=== PATIENT | male | born 1965 | race Caucasian/White ===

== ENCOUNTER → 2016-06-30 | Outpatient (CLI) | payer BC ==
[~2016-06-30] MED LIST: ASPI325T45 PO; BND25 PO; IBUP-1050 PO; RIVA1.5T PO; RIVA1TAB4 PO; XRL10 PO
--- NOTE | 2016-06-30 22:20 | DIAGNOSTIC IMAGING REPORT ---
BILATERAL LOWER EXTREMITY VENOUS DOPPLER HISTORY: Pain. Edema. BILATERAL LEG PAIN COMPARISON STUDY: None. FINDINGS: There is normal compressibility, flow, and augmentation within the bilateral lower extremity deep venous systems. IMPRESSION: No DVT within the right or left lower extremity. Electronically signed by: Eric Plasencia M.D. 06/30/2016 10:19 PM Dictated Date/Time: 06/30/2016 10:18 PM
== END | disposition home or self-care (01) ==
LOC: C.ULTR 21:21
PROVIDERS: ATTEND Family Medicine
DX: M79.605 Pain in left leg (principal); M79.604 Pain in right leg

== ENCOUNTER 2016-07-06 18:58 | Inpatient (IN) | payer BC ==
[~2016-07-06] VITALS: Ht 185.4 cm; Wt 105.6 kg
[2016-07-06] MEDS ORDERED: SODIUM CHLORIDE 0.9% 1000ML 1,000 ML IV STA (19:12)
[2016-07-06] MEDS ORDERED: ASPIRIN 81 MG CHEW PO STA (19:12)
[2016-07-06] MEDS ORDERED: NITROGLYCERIN 0.4 MG SL PER TAB CHARGE SL PRN (19:15)
[2016-07-06 19:25] LABS: BASO % 0.3 %; BASO ABS # 0.02 K/uL (0-0.2); COMPLETE YES; EOS % 2.8 %; HEMATOCRIT 40.8 % (42-52); IG% 0.1 %; LYMPH % 29.5 %; LYMPH ABS # 2.01 K/uL (1.2-3.4); MEAN CELL VOLUME 89.1 fL (80-100); MEAN CORPUSCULAR HEMOGLOBIN 31.2 pg (25-34); NEUT % 60.3 %; PLATELET COUNT 186 K/uL (130-400); RED BLOOD COUNT 4.58 M/uL (4.7-6.1); WHITE BLOOD COUNT 6.82 K/uL (4.8-10.8)
--- NOTE | 2016-07-06 19:28 | DIAGNOSTIC IMAGING REPORT ---
CHEST ONE VIEW PORTABLE CLINICAL HISTORY: Atypical chest pain COMPARISON STUDY: No previous studies for comparison. FINDINGS: The cardiac and mediastinal contours are normal. There is no evidence of focal pulmonary consolidation. There is no evidence of failure. No pleural effusions are visualized.[There is a vague 12 mm opacity within the right mid to upper lung zone. While nonspecific, I would favor a summation. A follow-up PA and lateral study might be considered. IMPRESSION: 1. AP portable study 2. Vague 12 mm right mid upper lung zone opacity, possibly representing a summation. 3. No evidence of failure. No evidence of focal pulmonary consolidation Electronically signed by: Francesco Adrian M.D. 07/06/2016 7:27 PM Dictated Date/Time: 07/06/2016 7:25 PM
[2016-07-06 19:42] LABS: BUN/CREATININE RATIO 15.2 (10-20); CALCIUM 8.4 mg/dl (8.5-10.1); POTASSIUM 3.8 mmol/L (3.5-5.1)
[2016-07-06] MEDS ORDERED: IBUP-1050 PO (19:51)
[2016-07-06] MEDS ORDERED: DIPH25CA5 PO (19:51)
--- NOTE | 2016-07-06 21:14 | DIAGNOSTIC IMAGING REPORT ---
CT ANGIOGRAM OF THE CHEST CLINICAL HISTORY: Atypical chest pain. COMPARISON STUDY: No previous studies for comparison. TECHNIQUE: Following the IV administration of 116 mL of Optiray-320, CT angiogram of the thorax was performed from the thoracic inlet to the lung bases utilizing the pulmonary embolus protocol. Images are reviewed in the axial, sagittal, and coronal planes. IV contrast was administered without complication. MIP imaging was performed. CT DOSE: FINDINGS: No pathologically enlarged axillary mediastinal or hilar lymph nodes were visualized. There was no evidence of thoracic aortic dilatation. There are small pulmonary artery filling defects involving both upper lobes the left lower lobe of the right middle lobe. There are moderate pulmonary artery filling defects within the right lower lobe. The findings are indicative of acute bilateral pulmonary embolism. No pleural effusions are visualized. There are mild dependent atelectatic changes. There is no lobar consolidation. There are clustered right apical nodules, some which are calcified. A postinflammatory etiology is favored. There are no nodules to correspond to the equivocal 12 mm right lung nodule described in the recent chest x-ray. This likely represented a summation. IMPRESSION: Acute bilateral pulmonary embolism. Electronically signed by: Francesco Adrian M.D. 07/06/2016 9:13 PM Dictated Date/Time: 07/06/2016 9:10 PM
[2016-07-06] MEDS ORDERED: OPTIRAY 320 IV PRN (21:15)
--- NOTE | 2016-07-06 21:23 | DIAGNOSTIC IMAGING REPORT ---
CT ANGIO PELVIS WITH CONTRAST CT DOSE: 1119.17 mGy.cm CLINICAL HISTORY: Chest and pelvic pain. Leg swelling. TECHNIQUE: CT angiography of the abdomen was performed in a dynamic helical fashion during intravenous administration of 116 cc of Optiray 320. COMPARISON STUDY: None. FINDINGS: There is no evidence of abdominal aortic aneurysm. There is no evidence of aortic or iliac stenosis. There is no pathologic adenopathy. There is a left common iliac lymph node the upper limits of normal in size measuring 9 mm in short axis. There are no abnormal pelvic masses. There is no pathologic bowel dilatation. Pelvic veins are not optimally evaluated on this arterial phase study. The technologist performing the study, assumed this was an arteriographic examination. The patient was not called back for additional imaging, as the chest portion of the examination revealed bilateral pulmonary embolism. IMPRESSION: 1. No evidence of aortic or iliac aneurysm, dissection, or stenosis. 2. No abnormal pelvic masses. No evidence of pathologic adenopathy by size criteria. Electronically signed by: Francesco Adrian M.D. 07/06/2016 9:22 PM Dictated Date/Time: 07/06/2016 9:09 PM
[2016-07-06] MEDS ORDERED: HEPARIN SOD (PORCINE) 1000 UNIT/ML 10 ML VIAL IV STA (21:34)
[2016-07-06] MEDS ORDERED: HEPARIN SQ 5000 UNIT HEART ALERT CARP ONE (21:40)
[2016-07-06] MEDS ORDERED: HEPARIN 25000 UNIT/500 ML D5W ONE (21:40)
[2016-07-06] MEDS ORDERED: HEPARIN SOD (PORCINE) 1000 UNIT/ML 10 ML VIAL ONE (21:42)
[2016-07-06] MEDS ORDERED: HEPARIN 25,000 UNIT/500ML D5W 500 ML IV PRN (21:45)
[2016-07-06 21:55] LABS: INR 0.9 (0.9-1.1); PARTIAL THROMBOPLASTIN RATIO 1.1
[2016-07-06] MEDS ORDERED: IBUPROFEN 200 MG TAB PO PRN (22:30)
[2016-07-06] MEDS ORDERED: ALUMINUM/MAGNESIUM/SIMETH (MAALOX MAX) 30 ML UDC PO PRN (22:30)
[2016-07-06] MEDS ORDERED: MAGNESIUM HYDROXIDE SUSP 30 ML UDC PO PRN (22:30)
[2016-07-06] MEDS ORDERED: POLYETHYLENE (MIRALAX) 17 GM PACK PO PRN (22:30)
[2016-07-06] MEDS ORDERED: ONDANSETRON INJ 2 MG/ML 2 ML VIAL IV PRN (22:30)
--- NOTE | 2016-07-06 22:37 | History and Physical ---
History & Physical Date & Time of Service: Jul 06, 2016 at 22:36 Chief Complaint: Chest Pain, Arm Pain, Down Through The Arm Primary Care Physician: Dori Talavera MD History of Present Illness Source: patient This is a 50 y/o M with a h/o of JRA who presents with left sided chest pain. He reports that last week, he had some bilateral calf pain which he attributed to cramps and didn't think much of it. However the pain persisted, so he went to [facility] and there was concern for DVT, so an USG was done. This was reportedly negative. He also did have some blood work that has not been reported yet. Today at dinner, he started have low grade left sided chest pain that started as a dull soreness and progressed to worsening pain. The pain was about 5/10. He asked his to bring him to the ER. Currently he does have chest pain that is worse with inspiration and somewhat improved with sitting forward. He does report travelling to [facility] about 2-3 weeks ago for his daughters wedding. This was a 9+ hour flight. He's not really sure if he had developed any calf tenderness then. He denies a personal and / or family history of blood clots/ clotting disorder, though there were grand parents who young from unknown causes. Denies shortness of breath, melena, hematochezia, abdominal pain, nausea/ vomiting, diaphoresis, numbness/tingling Denies smoking Past Medical/Surgical History Medical Problems: (1) High triglycerides Status: Chronic (2) Hypercholesteremia Status: Chronic Family History FH: cancer FH: diabetes mellitus FH: heart disease FH: hypertension FH: seizures Kidney stone Social History Smoking Status: Never Smoker Alcohol Use: occasionally Drug Use: none Marital Status: Housing status: lives with family Occupational Status: employed Multi-Drug Resistant Organisms History of MDRO: No Allergies Coded Allergies: No Known Allergies (Unverified , 07/06/16) Home Medications Scheduled Diphenhydramine Hcl (Benadryl), 50 MG PO HS Rivaroxaban (Xarelto), 20 MG PO DAILY Rivaroxaban (Xarelto), 15 MG PO BID Review of Systems Constitutional: No chills, No fever Eyes: No worsening of vision ENT: No hearing loss Respiratory: No cough, No dyspnea at rest, No dyspnea on exertion, No shortness of breath, No sputum, No wheezing Cardiovascular: + chest pain Abdomen: No diarrhea, No nausea, No pain, No vomiting Musculoskeletal: + calf pain, + joint pain, + muscle pain, + swelling Genitourinary - Male: No dysuria, No hematuria, No urinary frequency, No urinary urgency Physical Exam Vital Signs Date Time Temp Pulse Resp B/P Pulse Ox O2 Delivery O2 Flow Rate FiO2 07/06/16 21:09 77 18 143/90 97 Room Air 07/06/16 19:17 98 Room Air 07/06/16 19:17 98 Room Air 07/06/16 19:14 72 07/06/16 19:10 98 Room Air 07/06/16 19:00 36.7 72 18 153/100 98 Room Air General Appearance: no apparent distress Eyes: PERRL, EOMI ENT: hearing grossly normal Neck: supple, no adenopathy, thyroid normal Respiratory/Chest: lungs clear, normal breath sounds, no respiratory distress, no accessory muscle use Cardiovascular: regular rate, rhythm, no edema, no murmur Abdomen/GI: normal bowel sounds, non tender, soft Back: no CVA tenderness, no muscle spasm Extremities/Musculoskelatal: + calf tenderness (left proximal calf), + swelling (left calf > right) Neurologic/Psych: no motor/sensory deficits, alert, normal mood/affect, oriented x 3 Diagnostics Laboratory Results Results Past 24 Hours Test 07/06/16 19:13 07/06/16 19:16 07/06/16 21:51 Range/Units White Blood Count 6.82 4.8-10.8 K/uL Red Blood Count 4.58 4.7-6.1 M/uL Hemoglobin 14.3 14.0-18.0 g/dL Hematocrit 40.8 42-52 % Mean Corpuscular Volume 89.1 80-100 fL Mean Corpuscular Hemoglobin 31.2 25-34 pg Mean Corpuscular Hemoglobin Concent 35.0 32-36 g/dl Platelet Count 186 130-400 K/uL Mean Platelet Volume 10.0 7.4-10.4 fL Neutrophils (%) (Auto) 60.3 % Lymphocytes (%) (Auto) 29.5 % Monocytes (%) (Auto) 7.0 % Eosinophils (%) (Auto) 2.8 % Basophils (%) (Auto) 0.3 % Neutrophils # (Auto) 4.11 1.4-6.5 K/uL Lymphocytes # (Auto) 2.01 1.2-3.4 K/uL Monocytes # (Auto) 0.48 0.11-0.59 K/uL Eosinophils # (Auto) 0.19 0-0.5 K/uL Basophils # (Auto) 0.02 0-0.2 K/uL RDW Standard Deviation 41.3 36.4-46.3 fL RDW Coefficient of Variation 12.8 11.5-14.5 % Immature Granulocyte % (Auto) 0.1 % Immature Granulocyte # (Auto) 0.01 0.00-0.02 K/uL Prothrombin Time 10.0 9.0-12.0 SECONDS Prothromb Time International Ratio 0.9 0.9-1.1 Activated Partial Thromboplast Time 27.3 21.0-31.0 SECONDS Partial Thromboplastin Ratio 1.1 Sodium Level 141 136-145 mmol/L Potassium Level 3.8 3.5-5.1 mmol/L Chloride Level 106 98-107 mmol/L Carbon Dioxide Level 27 21-32 mmol/L Anion Gap 8.0 3-11 mmol/L Blood Urea Nitrogen 15 7-18 mg/dl Creatinine 1.00 0.60-1.40 mg/dl Est Creatinine Clear Calc Drug Dose 111.5 ml/min Estimated GFR () 99.8 Estimated GFR (Non- 86.2 BUN/Creatinine Ratio 15.2 10-20 Random Glucose 117 70-99 mg/dl Calcium Level 8.4 8.5-10.1 mg/dl Total Bilirubin 0.4 0.2-1 mg/dl Direct Bilirubin 0.1 0-0.2 mg/dl Aspartate Amino Transf (AST/SGOT) 29 15-37 U/L Alanine Aminotransferase (ALT/SGPT) 53 12-78 U/L Alkaline Phosphatase 91 45-117 U/L Total Protein 7.9 6.4-8.2 gm/dl Albumin 3.9 3.4-5.0 gm/dl Lipase 289 73-393 U/L Bedside D-Dimer > 450 0-450 ng/mlFEU Bedside Troponin I 0.010 0-0.045 ng/ml Folate > 24.00 >5.38 ng/mL Impression Assessment and Plan This is a 50 y/o M, history of JRA, otherwise healthy who presents with progressively worsening chest pain 2/2 to Bilateral pulmonary emboli. History would suggest that this may have been provoked with his recent trip to [facility] , however, time elapsed till presentation of symptoms is somewhat greater than what one would expect, unless he had developed a small clot that progressed and propagated. Bilateral pulmonary Emboli: CT chest with evidence of such LE dopplers done to evaluate for illiac involvement- none seen CTA with no evidence of dissection. Patient started on Lovenox BID Tomorrow, Case management and team can decide on oral anticoagulation based on patient's insurance Ideally patient could go home tomorrow if remains hemodynamically stable Hypercoagulable work-up pending If truly unprovoked, I also wonder about his autoimmune condition, RA, that may raise his risk for PE vs. other concomitant AI conditions (could consider if hypercoagulable workup is negative.) Rheumatoid Arthritis: Patient takes Ibuprofen Concern for GI bleed with Anticoagulation and consistent use of ibuprofen Could try tramadol as an alternative for the interim Need to discuss options as patient is somewhat reliant on ibuprofen for pain control. DVT proph Lovenox for now VTE Prophylaxis VTE Risk Assessment Done? Y/N: Yes Risk Level: High Assessment and Plan Attending Addendum: I have physically seen and examined this patient, have directed their medical care, have supervised the medical residents activities, and agree with the H&P as noted above, with the following changes: The patient is awake, well-developed and adequately nourished, alert and oriented 3, normocephalic and atraumatic, lying in bed and in no acute distress. HEENT--PERRL, EOMI, mucous membranes and oropharynx dry. Neck--supple, no JVD or bruits, thyroid normal, trachea midline, no adenopathy. Heart--normal S1 and S2, no extra beats, no murmurs, rubs or gallops. Lungs--clear bilaterally with good air movement, no respiratory distress, no accessory muscle use. Abdomen--normal bowel sounds and soft, nontender and nondistended, no hernias or masses, no organomegaly. Extremities--right lower extremity/no cyanosis, clubbing or edema. There are good distal pulses b/l. Left lower extremity calf has increased in size and tender. Dermatologic--normal skin turgor, normal color, warm and dry, no abnormal lymph nodes, no rash. Neurologic--cranial nerves II through XII grossly intact, motor and sensory examination normal. Rheumatologic--normal range of motion, nontender, muscles and joints. Psychiatric--normal affect. Assessment and plan: Bilateral pulmonary emboli/left lower extremity superficial veins with occlusive thrombus in the popliteal fossa--the patient will be admitted to hospital on Lovenox 1 mg/kg subcutaneous twice a day, that should be able to be changed over to Xarelto, pradoxa or Eliquis in the a.m., Depending on insurance coverage. Hypercoagulable workup has been ordered and is pending at this point. Rheumatoid arthritis patient has been using ibuprofen on a regular basis. He is advised to avoid all NSAIDs on a routine basis until he is off for anticoagulation. Tramadol with or without Tylenol can be an option for now, he could also use topical Voltaren gel.
[2016-07-06] MEDS ORDERED: ACETAMINOPHEN 325 MG TAB ONE (23:29)
[2016-07-07 00:17] VITALS: BP 157/112; PULSE 72; TEMP 36.4; O2SAT 97; Ht 185.4 cm; Wt 105.6 kg
[2016-07-07] MEDS ORDERED: NURSING VERBAL MED ORDER ONE (00:45)
--- NOTE | 2016-07-07 01:14 | EMERGENCY ROOM VISIT NOTE ---
History Report prepared by Angel: Sony Estrada Under the Supervision of: Dr. Alan Miranda M.D. First contact with patient: 19:06 Chief Complaint: CHEST PAIN Stated Complaint: CHEST PAIN, ARM PAIN, DOWN THROUGH THE ARM History of Present Illness The patient is a 50 year old male who presents to the Emergency Room with complaints of persistent chest pain that started 40 minutes ago. The patient notes that the discomfort was mainly in his left chest and radiated down his left arm. The discomfort came on suddenly while he was eating dinner tonight. When the discomfort started, he rated his discomfort as a 4.5 out of 10 in severity. Upon arrival at the ED, the patient rates his discomfort as a 3 out of 10 in severity and describes it as feeling like a pressure in his chest. He also complains of a headache. A few days ago, the patient had significant discomfort in his left calf. He presented to his doctor who did an ultrasound which showed no blood clot or thrombosis and blood work which he gets the results for tomorrow. He still complains of left leg calf tenderness today. The patient notes that he had a relaxing day today and did not exert himself more than usual. He recently travelled to [facility] and back. Pt denies LOC, fevers, chills, diaphoresis, visual changes, neck pain, tearing pain radiating to the back, personal history or family history of aneurysm or pulmonary embolism, uncontrolled hypertension, breathing difficulties, coagulation abnormalities, recent surgery or immobilization, nausea, vomiting, abdominal pain, melena, hematochezia, urinary symptoms, numbness, weakness, lymphadenopathy, rash, or other complaints. Source of History: patient Onset: 40 minutes ago Position: chest (left) Symptom Intensity: was a 4.5/10 in severity, now is 3/10 Quality: pressure Timing: other (persistent) Associated Symptoms: + headache Note: Other associated symptoms: radiation to left arm, discomfort in left calf Review of Systems See HPI for pertinent positives and negatives. A total of ten systems were reviewed and were otherwise negative. Past Medical & Surgical Medical Problems: (1) Bilateral pulmonary embolism (2) High triglycerides (3) Hypercholesteremia Family History FH: cancer FH: diabetes mellitus FH: heart disease FH: hypertension FH: seizures Kidney stone Social History Smoking Status: Never Smoker Marital Status: Housing Status: lives with significant other Occupation Status: employed Current/Historical Medications Scheduled Diphenhydramine Hcl (Benadryl), 50 MG PO HS Scheduled PRN Ibuprofen (Advil), 200-400 MG PO TID PRN for Pain Allergies Coded Allergies: No Known Allergies (Unverified , 07/06/16) Physical Exam Vital Signs Date Time Temp Pulse Resp B/P Pulse Ox O2 Delivery O2 Flow Rate FiO2 07/06/16 21:09 77 18 143/90 97 Room Air 07/06/16 19:17 98 Room Air 07/06/16 19:17 98 Room Air 07/06/16 19:14 72 07/06/16 19:10 98 Room Air 07/06/16 19:00 36.7 72 18 153/100 98 Room Air Physical Exam GENERAL: Awake, alert, well-appearing, in no distress HENT: Normocephalic, atraumatic. Oropharynx unremarkable. EYES: Normal conjunctiva. Sclera non-icteric. NECK: Supple. No nuchal rigidity. FROM. No JVD. RESPIRATORY: Clear to auscultation. CARDIAC: Regular rate, normal rhythm. Extremities warm and well perfused. Pulses equal. ABDOMEN: Soft, non-distended. No tenderness to palpation. No rebound or guarding. No masses. RECTAL: Deferred. MUSCULOSKELETAL: Chest examination reveals no tenderness. The back is symmetrical on inspection without obvious abnormality. There is no CVA tenderness to palpation. No joint edema. Left calf tenderness, left Lety's sign. LOWER EXTREMITIES: Calves are equal size bilaterally and non-tender. No edema. No discoloration. NEURO: Normal sensorium. No sensory or motor deficits noted. SKIN: No rash or jaundice noted. Medical Decision & Procedures ER Provider Diagnostic Interpretation: X-ray: Per my interpretation, radiologist review. CHEST ONE VIEW PORTABLE CLINICAL HISTORY: Atypical chest pain COMPARISON STUDY: No previous studies for comparison. FINDINGS: The cardiac and mediastinal contours are normal. There is no evidence of focal pulmonary consolidation. There is no evidence of failure. No pleural effusions are visualized.[There is a vague 12 mm opacity within the right mid to upper lung zone. While nonspecific, I would favor a summation. A follow-up PA and lateral study might be considered. IMPRESSION: 1. AP portable study 2. Vague 12 mm right mid upper lung zone opacity, possibly representing a summation. 3. No evidence of failure. No evidence of focal pulmonary consolidation Electronically signed by: Francesco Adrian M.D. 07/06/2016 7:27 PM Dictated Date/Time: 07/06/2016 7:[address] ANGIOGRAM OF THE CHEST CLINICAL HISTORY: Atypical chest pain. COMPARISON STUDY: No previous studies for comparison. TECHNIQUE: Following the IV administration of 116 mL of Optiray-320, CT angiogram of the thorax was performed from the thoracic inlet to the lung bases utilizing the pulmonary embolus protocol. Images are reviewed in the axial, sagittal, and coronal planes. IV contrast was administered without complication. MIP imaging was performed. CT DOSE: FINDINGS: No pathologically enlarged axillary mediastinal or hilar lymph nodes were visualized. There was no evidence of thoracic aortic dilatation. There are small pulmonary artery filling defects involving both upper lobes the left lower lobe of the right middle lobe. There are moderate pulmonary artery filling defects within the right lower lobe. The findings are indicative of acute bilateral pulmonary embolism. No pleural effusions are visualized. There are mild dependent atelectatic changes. There is no lobar consolidation. There are clustered right apical nodules, some which are calcified. A postinflammatory etiology is favored. There are no nodules to correspond to the equivocal 12 mm right lung nodule described in the recent chest x-ray. This likely represented a summation. IMPRESSION: Acute bilateral pulmonary embolism. Electronically signed by: Francesco Adrian M.D. 07/06/2016 9:13 PM Dictated Date/Time: 07/06/2016 9:[address] ANGIO PELVIS WITH CONTRAST CT DOSE: 1119.17 mGy.cm CLINICAL HISTORY: Chest and pelvic pain. Leg swelling. TECHNIQUE: CT angiography of the abdomen was performed in a dynamic helical fashion during intravenous administration of 116 cc of Optiray 320. COMPARISON STUDY: None. FINDINGS: There is no evidence of abdominal aortic aneurysm. There is no evidence of aortic or iliac stenosis. There is no pathologic adenopathy. There is a left common iliac lymph node the upper limits of normal in size measuring 9 mm in short axis. There are no abnormal pelvic masses. There is no pathologic bowel dilatation. Pelvic veins are not optimally evaluated on this arterial phase study. The technologist performing the study, assumed this was an arteriographic examination. The patient was not called back for additional imaging, as the chest portion of the examination revealed bilateral pulmonary embolism. IMPRESSION: 1. No evidence of aortic or iliac aneurysm, dissection, or stenosis. 2. No abnormal pelvic masses. No evidence of pathologic adenopathy by size criteria. Electronically signed by: Francesco Adrian M.D. 07/06/2016 9:22 PM Dictated Date/Time: 07/06/2016 9:09 PM Laboratory Results 07/06/16 19:13 Red Blood Count 4.58, Mean Corpuscular Volume 89.1, Mean Corpuscular Hemoglobin 31.2, Mean Corpuscular Hemoglobin Concent 35.0, Mean Platelet Volume 10.0, Neutrophils (%) (Auto) 60.3, Lymphocytes (%) (Auto) 29.5, Monocytes (%) (Auto) 7.0, Eosinophils (%) (Auto) 2.8, Basophils (%) (Auto) 0.3, Neutrophils # (Auto) 4.11, Lymphocytes # (Auto) 2.01, Monocytes # (Auto) 0.48, Eosinophils # (Auto) 0.19, Basophils # (Auto) 0.02 07/06/16 19:13 Test 07/06/16 19:13 07/06/16 19:16 07/06/16 21:51 White Blood Count 6.82 K/uL (4.8-10.8) Red Blood Count 4.58 M/uL (4.7-6.1) Hemoglobin 14.3 g/dL (14.0-18.0) Hematocrit 40.8 % (42-52) Mean Corpuscular Volume 89.1 fL (80-100) Mean Corpuscular Hemoglobin 31.2 pg (25-34) Mean Corpuscular Hemoglobin Concent 35.0 g/dl (32-36) Platelet Count 186 K/uL (130-400) Mean Platelet Volume 10.0 fL (7.4-10.4) Neutrophils (%) (Auto) 60.3 % Lymphocytes (%) (Auto) 29.5 % Monocytes (%) (Auto) 7.0 % Eosinophils (%) (Auto) 2.8 % Basophils (%) (Auto) 0.3 % Neutrophils # (Auto) 4.11 K/uL (1.4-6.5) Lymphocytes # (Auto) 2.01 K/uL (1.2-3.4) Monocytes # (Auto) 0.48 K/uL (0.11-0.59) Eosinophils # (Auto) 0.19 K/uL (0-0.5) Basophils # (Auto) 0.02 K/uL (0-0.2) RDW Standard Deviation 41.3 fL (36.4-46.3) RDW Coefficient of Variation 12.8 % (11.5-14.5) Immature Granulocyte % (Auto) 0.1 % Immature Granulocyte # (Auto) 0.01 K/uL (0.00-0.02) Prothrombin Time 10.0 SECONDS (9.0-12.0) Prothromb Time International Ratio 0.9 (0.9-1.1) Activated Partial Thromboplast Time 27.3 SECONDS (21.0-31.0) Partial Thromboplastin Ratio 1.1 Anion Gap 8.0 mmol/L (3-11) Est Creatinine Clear Calc Drug Dose 111.5 ml/min Estimated GFR () 99.8 Estimated GFR (Non- 86.2 BUN/Creatinine Ratio 15.2 (10-20) Calcium Level 8.4 mg/dl (8.5-10.1) Total Bilirubin 0.4 mg/dl (0.2-1) Direct Bilirubin 0.1 mg/dl (0-0.2) Aspartate Amino Transf (AST/SGOT) 29 U/L (15-37) Alanine Aminotransferase (ALT/SGPT) 53 U/L (12-78) Alkaline Phosphatase 91 U/L (45-117) Total Protein 7.9 gm/dl (6.4-8.2) Albumin 3.9 gm/dl (3.4-5.0) Lipase 289 U/L (73-393) Bedside D-Dimer > 450 ng/mlFEU (0-450) Bedside Troponin I 0.010 ng/ml (0-0.045) Folate > 24.00 ng/mL (>5.38) Laboratory results reviewed by me Medications Administered Medications (Trade) Dose Ordered Sig/Quoc Route Start Time Stop Time Status Last Admin Dose Admin Aspirin (Aspirin Chew) 324 mg NOW STAT PO 07/06/16 19:12 07/06/16 19:13 DC 07/06/16 19:27 324 MG Nitroglycerin 0.4 mg 0.4 mg Q5M PRN SL 07/06/16 19:15 07/07/16 00:31 DC 07/06/16 19:27 0.4 MG Sodium Chloride (Nss 1000ml) 1,000 ml @ 125 mls/hr Q8H STAT IV 07/06/16 19:12 07/07/16 00:31 DC 07/06/16 19:28 125 MLS/HR ECG Indication: chest pain Rate (beats per minute): 73 Rhythm: normal sinus Findings: nonspecific-ST abn, no acute ischemic change, no ectopy Comparison ECG Date: no prior available Change: Repeat EKG: Normal sinus rhythm with a rate of 76, non-specific ST abnormality no significant change when compared to the first EKG. Repeat EKG (#3): Normal sinus rhythm, rate of 70, no acute ischemia, no ectopy. ED Course 1901: The patient was evaluated in room B11. A complete history and physical exam was performed. 1911: Ordered NSS 1000 ml @ 125 mls/hr IV, Aspirin 324 mg PO. 1914: Ordered Nitroglycerin 0.4 mg SL/chest pain. 1916: At this time, I reevaluated the patient and updated him on his test results. 2131: At this time, I reevaluated the patient. He feels okay. He notes he had some discomfort that he rated 4 out of 10 in severity after he coughed. 2141: At this time, I discussed the patient's case with Dr. Urrutia - Hospitalist LAILA and he agreed to accept the patient for further evaluation. 2144: Ordered Heparin Sodium / Dextrose 500 ml @ 33 mls/hr IV. Medical Decision Triage Nursing notes reviewed. The patient's presentation and history were concerning for left sided chest pain. Etiologies such as cardiac ischemia, aortic dissection, pulmonary embolism, pneumonia, pneumothorax, musculoskeletal, infections, gastrointestinal, as well as others were entertained. The patient was evaluated. He had left-sided chest pain. He had a nonspecific ST change on his ECG. He was given aspirin and nitroglycerin. He did feel better after this. He had serial ECGs performed and there was no ST elevation or ST depression noted. The patient had an unremarkable chest x-ray. The patient had an unremarkable CBC, chemistry panel, LFTs and lipase. D-dimer was abnormal. He was sent for CT imaging. CT imaging revealed bilateral pulmonary emboli. The patient was reassessed. Hemodynamically he was stable. Hypercoagulability labs were ordered. IV heparin was ordered. Consultation was made with Dr. Julio Urrutia. He evaluated the patient in the emergency department and admitted him for further treatment. The chart was completed utilizing [employer] Speech voice recognition software. Grammatical errors, random word insertions, pronoun errors, and incomplete sentences are an occasional consequence of this system due to software limitations, ambient noise, and hardware issues. Any formal questions or concerns about the content, text, or information contained within the body of this dictation should be directly addressed to the physician for clarification. Consults Time Called: 2136 Consulting Physician: Dr. Urrutia - [place] [facility] [place] Call: 2141 At this time, I discussed the patient's case with Dr. Urrutia and he agreed to accept the patient for further evaluation. Impression Primary Impression: Bilateral pulmonary embolism Critical Care I have personally spent greater than 30 minutes of critical care time in the direct management of this patient. This includes bedside care, interpretation of diagnostic studies, and testing, discussion with consultants, patient, and family members, and other required patient management activities. This 30 minutes is in excess of all separately billable procedures. Scribe Attestation The scribe's documentation has been prepared under my direction and personally reviewed by me in its entirety. I confirm that the note above accurately reflects all work, treatment, procedures, and medical decision making performed by me. Departure Information Dispostion Being Evaluated By Hospitalist Referrals Droi Talavera MD (PCP)
[2016-07-07] MEDS: ENOXAPARIN 120 MG/0.8 ML SYR SQ SCH ×2 (01:24→12:00)
[2016-07-07] MEDS ORDERED: TRAMADOL HCL 50 MG TAB PO PRN (03:00)
[2016-07-07 04:20] VITALS: BP_SYST 128; BP_SYST 138; BP_DIAS 82; BP_DIAS 90; PULSE 69; TEMP 36.5; O2SAT 95
[2016-07-07] MEDS: ACETAMINOPHEN 325 MG TAB PO PRN ×2 (07:06→12:51)
[2016-07-07 07:33] VITALS: BP 138/86; PULSE 70; TEMP 36.4; O2SAT 95
--- NOTE | 2016-07-07 07:36 | DIAGNOSTIC IMAGING REPORT ---
BILATERAL LOWER EXTREMITY VENOUS DOPPLER HISTORY: Pulmonary emboli. Assess for DVT. COMPARISON STUDY: Venous Doppler 06/30/2016. FINDINGS: No DVT within the right lower extremity. No thrombus within the bilateral iliac veins. Acute occlusive thrombus within the superficial veins of the popliteal fossa. No DVT within the left lower extremity. IMPRESSION: 1. No DVT within the right or left lower extremity. 2. Occlusive thrombus within the superficial veins at the popliteal fossa. Electronically signed by: Jef Atkins M.D. 07/07/2016 7:52 AM Dictated Date/Time: 07/07/2016 7:31 AM
[2016-07-07 11:47] VITALS: BP 141/92; PULSE 68; TEMP 36.5; O2SAT 94
[2016-07-07] MEDS ORDERED: RIVA1.5T PO ×2 (13:23→13:30)
[2016-07-07] MEDS ORDERED: RIVA1TAB4 PO (13:23)
--- NOTE | 2016-07-07 13:27 | Discharge Instructions ---
Discharge Instructions Date of Service Jul 07, 2016. Admission Reason for Admission: Bilateral Pulmonary Embolism Discharge Discharge Diagnosis / Problem: Pulmonary embolism Discharge Goals Goal(s): Decrease discomfort, Increase independence, Improve disease control, Diagnostic testing, Therapeutic intervention Activity Recommendations Activity Limitations: resume your previous activity . Instructions / Follow-Up Instructions / Follow-Up You came in to the hospital for left sided chest and imaging showed you have pulmonary embolism. Please take Xarelto 15mg twice for 3 weeks then take 20mg daily for total of 3 months. Follow up with your primary doctor as scheduled. If symptoms doesn't resolve or have new symptoms please come back to the hospital. Current Hospital Diet Patient's current hospital diet: Regular Diet Discharge Diet Recommended Diet: Regular Diet Pending Studies Studies pending at discharge: yes List of pending studies: hypercoagulability workups Medical Emergencies . Who to Call and When: Medical Emergencies: If at any time you feel your situation is an emergency, please call 911 immediately. . Non-Emergent Contact Non-Emergency issues call your: Primary Care Provider . . "Provider Documentation" section prepared by Jacqui Varela. VTE Core Measure Inpt VTE Proph given/why not?: Enoxaparin (Lovenox)SQ
[2016-07-07 13:38] VITALS: BP 141/92; PULSE 68; TEMP 36.5; O2SAT 94
--- NOTE | 2016-07-07 21:10 | Discharge Summary ---
Discharge Summary Date of Service Jul 07, 2016. (Jacqui Varela MD) Discharge Summary Admission Date: Jul 06, 2016 at 22:35 Discharge Date: Jul 07, 2016 Discharge Disposition: Home Principal Diagnosis: bilateral pulmonary embolism Procedures: Patient Name: KELSEY CALLAHAN Unit Number: [id number] Dictated: 07/06/161924 Transcribed: 07/06/161924 ARG Printed Date/Time: [~ rep prt dt]/[~ rep prt tm] [~ rep ct labl] - [~ rep ct ivnm] [facility] [place] [address] Dictated: 07/06/161924 Transcribed: 07/06/161924 ARG Printed Date/Time: [~ rep prt dt]/[~ rep prt tm] [~ rep ct labl] - [~ rep ct ivnm] CHEST ONE VIEW PORTABLE CLINICAL HISTORY: Atypical chest pain COMPARISON STUDY: No previous studies for comparison. FINDINGS: The cardiac and mediastinal contours are normal. There is no evidence of focal pulmonary consolidation. There is no evidence of failure. No pleural effusions are visualized.[There is a vague 12 mm opacity within the right mid to upper lung zone. While nonspecific, I would favor a summation. A follow-up PA and lateral study might be considered. IMPRESSION: 1. AP portable study 2. Vague 12 mm right mid upper lung zone opacity, possibly representing a summation. 3. No evidence of failure. No evidence of focal pulmonary consolidation Electronically signed by: Francesco Adrian M.D. 07/06/2016 7:27 PM Dictated Date/Time: 07/06/2016 7:25 PM The status of this report is Signed. Draft = Not yet reviewed or approved by Radiologist. Signed = Reviewed and approved by Radiologist. <AttendingPhy></AttendingPhy> <FamilyPhy>Dori Talavera MD</FamilyPhy> < PrimaryPhy>Dori Talavera MD</PrimaryPhy> <UnitNumber>[id number]</UnitNumber > <VisitNumber>[id number]</VisitNumber> <PatientName>KELSEY CALLAHAN</ PatientName> <DateOfBirth>1965</DateOfBirth> <Location>C.EDB</Location> < ServiceDate>07/06/16</ServiceDate> <MNE>ESINDI</MNE> <OrderingPhy>Alan Miranda MD</OrderingPhy> <OrderingPhyMNE>f rep ord dr brady</OrderingPhyMNE> < DictatingPhyMNE>f rep dict dr brady</DictatingPhyMNE> <CCListMNE>f rep ct mnvanda</ CCListMNE> <AdmittingPhyMNE>f pt admit dr brady</AdmittingPhyMNE> <AttendingPhyMNE >f pt attend dr brady</AttendingPhyMNE> <ConsultingPhyMNE>f pt consult dr brady</ConsultingPhyMNE> <FamilyPhyMNE>f pt fam dr brady</FamilyPhyMNE> <OtherPhyMNE>f pt other dr brady</OtherPhyMNE> < PrimaryPhyMNE>f pt prim care dr brady</PrimaryPhyMNE> <ReferringPhyMNE>f pt referring dr brady</ReferringPhyMNE> Patient Name: KELSEY CALLAHAN Unit Number: [id number] Dictated: 07/06/162109 Transcribed: 07/06/162109 ARG Printed Date/Time: [~ rep prt dt]/[~ rep prt tm] [~ rep ct labl] - [~ rep ct ivnm] [facility] [place] [address] Dictated: 07/06/162109 Transcribed: 07/06/162109 ARG Printed Date/Time: [~ rep prt dt]/[~ rep prt tm] [~ rep ct labl] - [~ rep ct ivnm] CT ANGIOGRAM OF THE CHEST CLINICAL HISTORY: Atypical chest pain. COMPARISON STUDY: No previous studies for comparison. TECHNIQUE: Following the IV administration of 116 mL of Optiray-320, CT angiogram of the thorax was performed from the thoracic inlet to the lung bases utilizing the pulmonary embolus protocol. Images are reviewed in the axial, sagittal, and coronal planes. IV contrast was administered without complication. MIP imaging was performed. CT DOSE: FINDINGS: No pathologically enlarged axillary mediastinal or hilar lymph nodes were visualized. There was no evidence of thoracic aortic dilatation. There are small pulmonary artery filling defects involving both upper lobes the left lower lobe of the right middle lobe. There are moderate pulmonary artery filling defects within the right lower lobe. The findings are indicative of acute bilateral pulmonary embolism. No pleural effusions are visualized. There are mild dependent atelectatic changes. There is no lobar consolidation. There are clustered right apical nodules, some which are calcified. A postinflammatory etiology is favored. There are no nodules to correspond to the equivocal 12 mm right lung nodule described in the recent chest x-ray. This likely represented a summation. IMPRESSION: Acute bilateral pulmonary embolism. Electronically signed by: Francesco Adrian M.D. 07/06/2016 9:13 PM Dictated Date/Time: 07/06/2016 9:10 PM The status of this report is Signed. Draft = Not yet reviewed or approved by Radiologist. Signed = Reviewed and approved by Radiologist. <AttendingPhy></AttendingPhy> <FamilyPhy>Dori Talavera MD</FamilyPhy> < PrimaryPhy>Dori Talavera MD</PrimaryPhy> <UnitNumber>[id number]</UnitNumber > <VisitNumber>[id number]</VisitNumber> <PatientName>MOUNIKAFLAKOKELSEY</ PatientName> <DateOfBirth>1965</DateOfBirth> <Location>C.EDB</Location> < ServiceDate>07/06/16</ServiceDate> <MNE>LILA</MNE> <OrderingPhy>Alan Miranda MD</OrderingPhy> <OrderingPhyMNE>f rep ord dr brady</OrderingPhyMNE> < DictatingPhyMNE>f rep dict dr brady</DictatingPhyMNE> <CCListMNE>f rep ct caitlyn</ CCListMNE> <AdmittingPhyMNE>f pt admit dr brady</AdmittingPhyMNE> <AttendingPhyMNE >f pt attend dr brady</AttendingPhyMNE> <ConsultingPhyMNE>f pt consult dr brady</ConsultingPhyMNE> <FamilyPhyMNE>f pt fam dr brady</FamilyPhyMNE> <OtherPhyMNE>f pt other dr brady</OtherPhyMNE> < PrimaryPhyMNE>f pt prim care dr brady</PrimaryPhyMNE> <ReferringPhyMNE>f pt referring dr brady</ReferringPhyMNE> Patient Name: KELSEY CALLAHAN Unit Number: [id number] Dictated: 07/06/162108 Transcribed: 07/06/162109 ARG Printed Date/Time: [~ rep prt dt]/[~ rep prt tm] [~ rep ct labl] - [~ rep ct ivnm] [facility] [place] [address] Dictated: 07/06/162108 Transcribed: 07/06/162109 ARG Printed Date/Time: [~ rep prt dt]/[~ rep prt tm] [~ rep ct labl] - [~ rep ct ivnm] CT ANGIO PELVIS WITH CONTRAST CT DOSE: 1119.17 mGy.cm CLINICAL HISTORY: Chest and pelvic pain. Leg swelling. TECHNIQUE: CT angiography of the abdomen was performed in a dynamic helical fashion during intravenous administration of 116 cc of Optiray 320. COMPARISON STUDY: None. FINDINGS: There is no evidence of abdominal aortic aneurysm. There is no evidence of aortic or iliac stenosis. There is no pathologic adenopathy. There is a left common iliac lymph node the upper limits of normal in size measuring 9 mm in short axis. There are no abnormal pelvic masses. There is no pathologic bowel dilatation. Pelvic veins are not optimally evaluated on this arterial phase study. The technologist performing the study, assumed this was an arteriographic examination. The patient was not called back for additional imaging, as the chest portion of the examination revealed bilateral pulmonary embolism. IMPRESSION: 1. No evidence of aortic or iliac aneurysm, dissection, or stenosis. 2. No abnormal pelvic masses. No evidence of pathologic adenopathy by size criteria. Electronically signed by: Francesco Adrian M.D. 07/06/2016 9:22 PM Dictated Date/Time: 07/06/2016 9:09 PM The status of this report is Signed. Draft = Not yet reviewed or approved by Radiologist. Signed = Reviewed and approved by Radiologist. <AttendingPhy></AttendingPhy> <FamilyPhy>Dori Talavera MD</FamilyPhy> < PrimaryPhy>Dori Talavera MD</PrimaryPhy> <UnitNumber>[id number]</UnitNumber > <VisitNumber>[id number]</VisitNumber> <PatientName>KELSEY CALLAHAN</ PatientName> <DateOfBirth>1965</DateOfBirth> <Location>C.EDB</Location> < ServiceDate>07/06/16</ServiceDate> <MNE>ESINDI</MNE> <OrderingPhy>Alan Miranda MD</OrderingPhy> <OrderingPhyMNE>f rep ord dr brady</OrderingPhyMNE> < DictatingPhyMNE>f rep dict dr brady</DictatingPhyMNE> <CCListMNE>f rep ct mne</ CCListMNE> <AdmittingPhyMNE>f pt admit dr brady</AdmittingPhyMNE> <AttendingPhyMNE >f pt attend dr brady</AttendingPhyMNE> <ConsultingPhyMNE>f pt consult dr brady</ConsultingPhyMNE> <FamilyPhyMNE>f pt fam dr brady</FamilyPhyMNE> <OtherPhyMNE>f pt other dr brady</OtherPhyMNE> < PrimaryPhyMNE>f pt prim care dr brady</PrimaryPhyMNE> <ReferringPhyMNE>f pt referring dr brady</ReferringPhyMNE> Patient Name: KELSEY CALLAHAN Unit Number: [id number] Dictated: 07/07/16730 Transcribed: 07/07/16744 [facility] Printed Date/Time: [~ rep prt dt]/[~ rep prt tm] [~ rep ct labl] - [~ rep ct ivnm] [facility] [place] [address] Dictated: 07/07/16730 Transcribed: 07/07/16744 [facility] Printed Date/Time: [~ rep prt dt]/[~ rep prt tm] [~ rep ct labl] - [~ rep ct ivnm] BILATERAL LOWER EXTREMITY VENOUS DOPPLER HISTORY: Pulmonary emboli. Assess for DVT. COMPARISON STUDY: Venous Doppler 06/30/2016. FINDINGS: No DVT within the right lower extremity. No thrombus within the bilateral iliac veins. Acute occlusive thrombus within the superficial veins of the popliteal fossa. No DVT within the left lower extremity. IMPRESSION: 1. No DVT within the right or left lower extremity. 2. Occlusive thrombus within the superficial veins at the popliteal fossa. Electronically signed by: Jef Atkins M.D. 07/07/2016 7:52 AM Dictated Date/Time: 07/07/2016 7:31 AM The status of this report is Signed. Draft = Not yet reviewed or approved by Radiologist. Signed = Reviewed and approved by Radiologist. <AttendingPhy>Julio Urrutia M.D.</AttendingPhy> <FamilyPhy>Dori Talavera MD</FamilyPhy> <PrimaryPhy>Dori Talavera MD</PrimaryPhy> <UnitNumber> [id number]</UnitNumber> <VisitNumber>[id number]</VisitNumber> <PatientName> KELSEY CALLAHAN</PatientName> <DateOfBirth>1965</DateOfBirth> <Location> C.2T</Location> <ServiceDate>07/06/16</ServiceDate> <MNE>ESINDI</MNE> < OrderingPhy>Julio Urrutia M.D.</OrderingPhy> <OrderingPhyMNE>f rep ord dr brady</OrderingPhyMNE> <DictatingPhyMNE>f rep dict dr brady</DictatingPhyMNE> < CCListMNE>f rep ct mne</CCListMNE> <AdmittingPhyMNE>f pt admit dr brady</ AdmittingPhyMNE> <AttendingPhyMNE>f pt attend dr brady</AttendingPhyMNE> <ConsultingPhyMNE>f pt consult dr brady</ConsultingPhyMNE> <FamilyPhyMNE>f pt fam dr brady</FamilyPhyMNE> <OtherPhyMNE>f pt other dr brady</OtherPhyMNE> < PrimaryPhyMNE>f pt prim care dr brady</PrimaryPhyMNE> <ReferringPhyMNE>f pt referring dr brady</ReferringPhyMNE> (Jacqui Varela MD) Medication Reconciliation New Medications: Rivaroxaban (Xarelto) 20 Mg Tab 20 MG PO DAILY for 69 Days, #69 TAB Rivaroxaban (Xarelto) 15 Mg Tab 15 MG PO BID for 21 Days, #42 TAB Continued Medications: Diphenhydramine Hcl (Benadryl) 25 Mg Cap 50 MG PO HS, CAP Discontinued Medications: Ibuprofen (Advil) 200 Mg Tab 200-400 MG PO TID PRN for Pain, TAB Discharge Exam Patient was seen at the bedside. Patient states that he still have chest tightness, mostly on the left side. Chest pain only on deep inspiration and movement, rates it as 2-3/10. He is feeling better than yesterday. Also complains of left calf tenderness, denies any on the right. Denies any swelling or edema of the lower extremities. Review of Systems: Constitutional: No chills, No fever Respiratory: No cough, No dyspnea at rest, No dyspnea on exertion, No shortness of breath, No sputum, No wheezing Cardiovascular: + chest pain (mostly on deep inspiration (2/10)), No edema, No orthopnea, No palpitations Abdomen: No nausea, No pain, No vomiting Musculoskeletal: + calf pain (left calf pain), No swelling Genitourinary - Male: No hematuria Hematologic / Lymphatic: No abnormal bleeding/bruising, No clotting problems Integumentary: No rash Physical Exam: General Appearance: WD/WN, no apparent distress Eyes: normal inspection Neck: supple, trachea midline Respiratory/Chest: chest non-tender, lungs clear, normal breath sounds, no respiratory distress, no accessory muscle use Cardiovascular: regular rate, rhythm, no edema, no murmur, normal peripheral pulses Abdomen / GI: normal bowel sounds, non tender, soft Extremities: normal inspection, normal capillary refill, no pedal edema, non -tender, + calf tenderness (mild tenderness on the left on palpation) Neurologic/Psychiatric: alert, normal mood/affect, oriented x 3 Skin: normal color, warm/dry, no rash (Jacqui Varela MD) Review of Systems: Constitutional: No fever Respiratory: No shortness of breath Cardiovascular: + chest pain (better) Physical Exam: General Appearance: no apparent distress Respiratory/Chest: lungs clear, no respiratory distress Cardiovascular: regular rate, rhythm Neurologic/Psychiatric: alert, oriented x 3 Skin: warm/dry (Hien Hernandez M.D.) Hospital Course This is a 50 y/o M with a h/o of JRA who presents with left sided chest pain. He reports that last week, he had some bilateral calf pain which he attributed to cramps and didn't think much of it. However the pain persisted, so he went to [facility] and there was concern for DVT, so an US was done. This was reportedly negative. He also did have some blood work that has not been reported yet. Yesterday at dinner, he started have low grade left sided chest pain that started as a dull soreness and progressed to worsening pain, which prompt him to come to the hospital. His chest pain is mostly on deep inspiration and exertion. He does report travelling to [facility] about 2-3 weeks ago for his daughters wedding. This was a 9+ hour flight. He's not really sure if he had developed any calf tenderness then. Denies any past hx of blood clots. He states that his maternal grandfather of heart attack which was related to blood clots. Denies any other FHx of blood clots or clotting disorder. Bilateral pulmonary Emboli CT showed acute bilateral pulmonary embolism. D-dimer was elevated. Patient was started on Lovenox 111mg BID. CTA showed no evidence of aortic or iliac aneurysm, dissection, or stenosis. Venous Doppler showed occlusive thrombus within the superficial veins at the popliteal fossa. No DVT was noted. Hep C is negative. Hypercoagulability work ups are pending. On discharge patient had chest tightness and pain with deep inspiration, which has improved significantly from yesterday. Also complains of left calf tenderness. Patient felt comfortable to go home. Patient was stable to be discharge. He was send home on Xarelto 15mg BID [id number] and 20mg daily for total of 3 months. Follow up with PCP in 1-2 weeks. Total Time Spent: Greater than 30 minutes This includes examination of the patient, discharge planning, medication reconciliation, and communication with other providers. (Jacqui Varela MD) I have reviewed the medical record and performed a history and physical examination of this patient today. I have discussed the case with Dr. Varela. The above note reflects my findings, conclusions, and recommendations. Total Time Spent: Greater than 30 minutes (38 min) (Hien Hernandez M.D.) Discharge Instructions Please refer to the electronic Patient Visit Report (Discharge Instructions) for additional information. (Jacqui Varela MD) Additional Copies To Dori Talavera MD Resident Tracking Resident Involvement: Resident Care Provided Care Provided: Adult Hospital Medicine (Jacqui Varela MD)
[2016-07-09 17:30] LABS: PROTEIN C ACTIVITY** TC 1777X 148 % (70-180); PROTEIN S ACT(FUNCT)**1779X 97 % (70-150)
[2016-07-09 23:29] LABS: ANTITHROMBINIII ACTIVITY** 100 % activity (80-120); B2 GLYCOPROTEIN IGA <9 SAU (<=20); B2 GLYCOPROTEIN IGG <9 SGU (<=20); B2 GLYCOPROTEIN IGM <9 SMU (<=20); DRVVT MIX INTERPRETAION Not Indicated; LAC PTT SCREEN 35 sec (<=40); PHOSPHATIDYLSERINE IGA <20 U/mL (<20); PHOSPHATIDYLSERINE IGG <10 U/mL (<10); PHOSPHATIDYLSERINE IGM <25 U/mL (<25)
[2016-10-17] MEDS ORDERED: XRL10 PO (08:41)
[2016-10-17] MEDS ORDERED: ASPI325T45 PO (08:41)
== END 2016-07-07 14:00 | disposition home or self-care (01) | DRG 176 ==
LOC: ENRESERVDT → ENRESERVTM → C.EDB 18:59 → C.2T 22:35
PROVIDERS: ADMIT Student in an Organized Health Care Education/Training Program; ATTEND Family Medicine
DX: I26.99 Other pulmonary embolism without acute cor pulmonale (principal); E87.1 Hypo-osmolality and hyponatremia; M06.9 Rheumatoid arthritis, unspecified; E78.00 Pure hypercholesterolemia, unspecified; R07.9 Chest pain, unspecified; Z79.899 Other long term (current) drug therapy; Z79.01 Long term (current) use of anticoagulants

== ENCOUNTER → 2016-10-17 | Outpatient (CLI) | payer BC ==
[~2016-10-17] MED LIST changes: -IBUP-1050 PO
[2016-10-17 11:40] LABS: CHOLESTEROL/HDL RATIO 5.6; PROSTATE SPECIFIC ANTIGEN 1.27 ng/ml (0.000-4.000)
== END | disposition home or self-care (01) ==
LOC: C.LABBC 08:11
PROVIDERS: ATTEND Family Medicine
DX: Z00.00 Encounter for general adult medical examination without abnormal findings (principal); Z12.5 Encounter for screening for malignant neoplasm of prostate; E88.81 Metabolic syndrome and other insulin resistance

== ENCOUNTER → 2017-05-04 | Outpatient (CLI) | payer OTHER ==
[~2017-05-04] MED LIST changes: -BND25 PO; +DIPH25CA5 PO; -RIVA1.5T PO; -RIVA1TAB4 PO
--- NOTE | 2017-05-04 07:53 | DIAGNOSTIC IMAGING REPORT ---
FUSION CT SINUSES W/O CLINICAL HISTORY: 51 years-old Male presenting with J01.91 Recurrent acute sinusitis. TECHNIQUE: Multidetector CT of the sinuses was performed without the use of intravenous contrast. IV contrast: None. A dose lowering technique was used consistent with the principles of ALARA (as low as reasonably achievable). COMPARISON: None. CT DOSE (mGy.cm): The estimated cumulative dose is 738.93 mGy.cm. FINDINGS: Sodium Chlorite Operator topogram: Unremarkable. Trace mucosal thickening of a few posterior ethmoid air cells. Otherwise the paranasal sinuses and mastoid air cells are clear. No sclerosis of the maxillary sinus wang to suggest chronic sinusitis. Bony nasal septum with slight leftward deviation anteriorly and rightward deviation with bony spurring in the midportion. Ostiomeatal units patent bilaterally though mild narrowing noted on the left secondary to trace mucosal thickening. Nasofrontal ethmoid recesses also patent bilaterally. No dehiscence of the bony optic canals no bony dehiscence of the carotid siphons. Josué cell noted on the right. No other significant anatomic variants are reviewed Orbits intact. Limited intracranial evaluation within normal limits. IMPRESSION: No current CT evidence of acute or chronic sinusitis. Minimal anatomic variants as above. Electronically signed by: Zachery Mares M.D. 05/04/2017 7:52 AM Dictated Date/Time: 05/04/2017 7:46 AM
== END | disposition home or self-care (01) ==
LOC: C.CTS 07:25
DX: J01.91 Acute recurrent sinusitis, unspecified (principal)

== ENCOUNTER → 2017-08-17 | Day surgery (SDC) | payer BC, OTHER ==
[~2017-08-17] VITALS: Ht 185.4 cm; Wt 104.5 kg
[~2017-08-17] MED LIST changes: -ASPI325T45 PO; +IBUP-1050 PO; +LIDOCAINE HCL 2% 2 ML VIAL (20MG/ML) ONE; +PROPOFOL IV EMULSION 10 MG/ML 20 ML VIAL ONE; +SODIUM CHLORIDE 0.9% 500ML 500 ML IV ONE; -XRL10 PO
[2017-08-17 12:37] VITALS: Ht 185.4 cm; Wt 104.5 kg
--- NOTE | 2017-08-17 12:52 | Endo History and Physical ---
History & Physical Date of Service: August 17, 2017. Chief Complaint: SCREENING Referring Physician: DR. SANCHEZ History of Present Illness 51 yo CM who presents for screening colonoscopy. Past Surgical History Hx Cardiac Surgery: No Hx Internal Defibrillator: No Hx Pacemaker: No Hx Abdominal Surgery: No Hx of Implantable Prosthesis: No Hx Post-Op Nausea and Vomiting: No Hx Cancer Surgery: No Hx Thoracic Surgery: No Hx Orthopedic: No Hx Urinary Tract Surgery: No Family History None Social History Smoking Status: Never Smoker Hx Substance Use: No Hx Alcohol Use: Yes (SOCIAL 1 OR 2 DRINKS EVERY 2 WEEKS) Allergies Coded Allergies: No Known Allergies (Unverified , 08/17/17) Current Medications Reported Home Medications Medications Dose Route/Sig Max Daily Dose Days Date Category Advil (Ibuprofen) 200 Mg Tab 400 Mg PO TID 08/05/17 Reported Benadryl (Diphenhydramine Hcl) 25 Mg Cap 50 Mg PO HS 07/06/16 Reported Vital Signs Weight (Kilograms): 104.55 Height (Feet): 6 Height (Inches): 1 Physical Exam General Appearance: WD/WN, no apparent distress Respiratory/Chest: Auscultation: breath sounds normal Cardiovascular: Heart Auscultation: RRR Abdomen: Bowel Sounds: normal Inspection & Palpation: soft, non-distended, no tenderness, guarding & rebound Assessment and Plan Assessment: 51 yo CM who presents for screening colonoscopy. Plan: Proceed with colonoscopy.
--- NOTE | 2017-08-17 13:58 | GI REPORT ---
Patient Name: Girma Barnes Procedure Date: 08/17/2017 12:44 PM Date of : 1965 Admit Type: Outpatient Age: 51 Gender: Male Attending MD: Kirk Ochoa DO Procedure: Colonoscopy Providers: Kirk Ochoa DO Referring MD: Baldo Finch DO Indications: Screening for colorectal malignant neoplasm Medicines: Monitored Anesthesia Care Complications: No immediate complications. Estimated Blood Loss: Estimated blood loss: none. Procedure: Pre-Anesthesia Assessment: - Prior to the procedure, a History and Physical was performed, and patient medications and allergies were reviewed. The patient's tolerance of previous anesthesia was also reviewed. The risks and benefits of the procedure and the sedation options and risks were discussed with the patient. All questions were answered, and informed consent was obtained. Prior Anticoagulants: The patient has taken no previous anticoagulant or antiplatelet agents. ASA Grade Assessment: III - A patient with severe systemic disease. After reviewing the risks and benefits, the patient was deemed in satisfactory condition to undergo the procedure. After I obtained informed consent, the scope was passed under direct vision. Throughout the procedure, the patient's blood pressure, pulse, and oxygen saturations were monitored continuously. The Scope was introduced through the anus and advanced to the terminal ileum. The colonoscopy was performed without difficulty. The patient tolerated the procedure well. The quality of the bowel preparation was good. The terminal ileum, ileocecal valve, appendiceal orifice, and rectum were photographed. Findings: The perianal and digital rectal examinations were normal. One 7 mm submucosal nodule was found in the cecum. Biopsies were taken with a cold forceps for histology. Non-bleeding internal hemorrhoids were found during retroflexion. The hemorrhoids were small. Impression: - Submucosal nodule in the cecum. Biopsied. - Non-bleeding internal hemorrhoids. Recommendation: - Resume previous diet. - Continue present medications. - Repeat colonoscopy for surveillance based on pathology results. - Return to primary care physician as previously scheduled. Kirk Ochoa DO 08/17/2017 1:57:42 PM This report has been signed electronically. Note Initiated On: 08/17/2017 12:44 PM Number of Addenda: 0 I attest to the content of the Intraoperative Record and orders documented therein, exceptions below {[id number]}
[2017-08-17 13:59] VITALS: BP 137/87; PULSE 63; O2SAT 98
--- NOTE | 2017-08-17 14:01 | Discharge Instructions ---
Endoscopy Patient Instructions Date / Procedure(s) Performed August 17, 2017. Colonoscopy Allergy Information Coded Allergies: No Known Allergies (Unverified , 08/17/17) Discharge Date / Findings August 17, 2017. Submucosal nodule in cecum s/p biopsies Internal hemorrhoids Medication Instructions Stopped Medication(s): IBUPROFEN STOPPED FOR 5 DAYS OK to resume all medications today as prescribed Reported Home Medications Medications Dose Route/Sig Max Daily Dose Days Date Category Advil (Ibuprofen) 200 Mg Tab 400 Mg PO TID 08/05/17 Reported Benadryl (Diphenhydramine Hcl) 25 Mg Cap 50 Mg PO HS 07/06/16 Reported Provider Instructions Activity Restrictions - No exercising or heavy lifting for 24 hours. - Do not drink alcohol the day of the procedure. - Do not drive a car or operate machinery until the day after the procedure. - Do not make any important decisions or sign important papers in 24 hours after the procedure. Following Day: - Return to full activity which may include returning to work/school. Diet Start your diet with liquids and light foods (jello, soup, juice, toast). Then eat your usual diet if not nauseated. Treatment For Common After Affects For mild abdominal pain, bloating, or excessive gas: - Rest - Eat lightly - Lie on right side Follow-Up Information Follow-up with DR. SANCHEZ as scheduled Anesthesia Information What You Should Know You have had a procedure that required some medicine to reduce anxiety and discomfort. This treatment is called moderate sedation. After receiving the treatment, you may be sleepy, but you will be able to breathe on your own. The effects of the treatment may last for several hours. Follow these instructions along with Activity/Diet recommendations noted above: * Do NOT do anything where dizziness or clumsiness would be dangerous. * Rest quietly at home today, then you can be up and about tomorrow. * Have a responsible person stay with you the rest of today. * You may have had an I.V. today. If so, you may take the dressing off later today. Recommendations Call your doctor if: * Trouble breathing * Continuous vomiting for more than 24 hours * Temperature above 101 degrees * Severe abdominal pain or bloating * Pain not relieved by pain medicine ordered * There is increased drainage or redness from any incision * A large amount of rectal bleeding greater than 2-3 tablespoons. (If you had a polyp/s removed or have hemorrhoids, a small amount of blood - from the rectum is to be expected.) * You have any unanswered questions or concerns. IN THE EVENT OF A SERIOUS EMERGENCY, GO TO THE NEAREST EMERGENCY ROOM Your discharge instructions were prepared by provider Kirk Ochoa. Patient Instructions Signature Page Girma Barnes Patient (or Guardian) Signature/Date: I have read and understand the instructions given to me by my caregivers. Caregiver/RN/Doctor Signature/Date: The above-named patient and/or guardian has received patient instructions on this date. + Original Patient Signature Page (only) stays with chart. Please make copy for patient.
--- NOTE | 2017-08-17 14:06 | Anesthesiology Progress Note ---
Anesthesia Post Op Note Date & Time August 17, 2017 at 14:06 Vital Signs Pain Intensity: 0 Vital Signs Past 12 Hours Date Time Temp Pulse Resp B/P (MAP) Pulse Ox O2 Delivery O2 Flow Rate FiO2 08/17/17 13:44 62 16 126/77 (93) 97 Room Air 08/17/17 13:29 66 16 112/78 (89) 96 Room Air 08/17/17 12:43 36.7 66 20 142/92 (109) 97 Room Air Notes Mental Status: alert / awake / arousable, participated in evaluation Pt Amnestic to Procedure: Yes Nausea / Vomiting: adequately controlled Pain: adequately controlled Airway Patency, RR, SpO2: stable & adequate BP & HR: stable & adequate Hydration State: stable & adequate Anesthetic Complications: no major complications apparent
== END | disposition home or self-care (01) ==
LOC: C.GI 12:16
PROVIDERS: ATTEND Internal Medicine
DX: Z12.11 Encounter for screening for malignant neoplasm of colon (principal); R59.1 Generalized enlarged lymph nodes; K64.8 Other hemorrhoids; Z86.711 Personal history of pulmonary embolism